=== PATIENT | female | born 1985 | race Hispanic/Latino ===

== ENCOUNTER 2021-09-20 07:34 | Emergency (ER) | payer OTHER ==
--- NOTE | 2021-09-20 08:51 | EDPHYS ---
Physician Documentation [facility] Name: Petty Enrique Age: 36 yrs Sex: Female : 1985 Arrival Date: 09/20/2021 Time: 07:35 Bed Waiting Private MD: ED Physician Kamran Craig HPI: 09/20 08:10 This 36 yrs old Female presents to ER via Ambulatory with complaints of Finger cp Injury. 08:10 The patient or guardian reports injury. The complaints affect the left middle and cp fourth fingers. Context: resulted from hand became entangled in leash of dog. Onset: The symptoms/episode began/occurred yesterday. Associated signs and symptoms: Pertinent positives: swelling, Pertinent negatives: cyanosis distally, decreased sensation distally. 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 - Social history:: Smoking status: Patient denies any tobacco usage or history of. ROS: 08:13 MS/extremity: Positive for pain, swelling, tenderness, of the left fourth and third cp fingers. 08:13 Neuro: Negative for numbness. 08:13 All other systems are negative. Exam: 08:14 Constitutional: The patient appears in no acute distress, alert, awake, non-toxic, well cp developed, well nourished. 08:14 Musculoskeletal/extremity: Extremities: grossly normal except: noted in the left third and fourth fingers: decreased ROM, pain, swelling, tenderness, ROM: limited passive range of motion due to pain, in the left third and fourth fingers, Perfusion: the extremity is normally perfused throughout, the left hand Sensation intact. Vital Signs: 07:41 BP 112 / 78; Pulse 88; Resp 14; Temp 98.2; Pulse Ox 100% ; Weight 48.99 kg; Height 5 vg1 ft. 2 in. (157.48 cm); Pain 2/10; 07:41 Body Mass Index 19.75 (48.99 kg, 157.48 cm) vg1 MDM: 08:20 Differential diagnosis: dislocation, closed fracture. cp 08:48 Data reviewed: vital signs, nurses notes. Test interpretation: by ED physician or cp midlevel provider: xrays of left hand negative for fracture. 08:50 Patient medically screened. cp 08:50 Counseling: I had a detailed discussion with the patient and/or guardian regarding: the cp historical points, exam findings, and any diagnostic results supporting the discharge/admit diagnosis, radiology results, to return to the emergency department if symptoms worsen or persist or if there are any questions or concerns that arise at home. 09/20 07:45 Order name: XRAY Hand LEFT 3 View; Complete Time: 09:07 jl7 09/20 09:07 Interpretation: Report reviewed. cp 09/20 08:47 Order name: Finger Splint; Complete Time: 09:07 cp Administered Medications: No medications were administered Disposition: 09:00 Chart complete. cp 14:22 Co-signature as Attending Physician, Kamran Craig MD I agree with the assessment and kdr plan of care. Disposition Summary: 09/20/21 08:50 Discharge Ordered Location: Home cp Problem: new cp Symptoms: have improved cp Condition: Stable cp Diagnosis - Pain in left finger(s) - Left Third and Fourth cp Followup: cp - With: Private Physician - When: 2 - 3 days - Reason: Worsening of condition Discharge Instructions: - Discharge Summary Sheet cp - Finger Sprain, Adult cp Forms: - Medication Reconciliation Form cp - Thank You Letter cp - Antibiotic Education cp - Prescription Opioid Use cp Prescriptions: - Ibuprofen 800 mg Oral Tablet - take 0.5 tablet by ORAL route every 8 hours As needed take with food; 30 cp tablet; Refills: 0, Product Selection Permitted Signatures: Dispatcher [employer] Kamran Mar MD MD kdr Sammy Arroyo PA PA cp Garcia, Victoria, RN RN vg1 Corrections: (The following items were deleted from the chart) 09/21 06:44 09/20 08:50 Differential diagnosis: dislocation, closed fracture, cp cp
--- NOTE | 2021-09-20 08:51 | ER ---
Nurse's Notes [facility] Name: Petty Enrique Age: 36 yrs Sex: Female : 1985 Arrival Date: 09/20/2021 Time: 07:35 Bed Waiting Private MD: Diagnosis: Pain in left finger(s)-Left Third and Fourth Presentation: 09/20 07:41 Chief complaint: Patient states: Was trying to bead picker dog and Left ring finger and vg1 Left middle finger were under dogs collar and dog twisted around. Pt fingers appear to be swollen. Incident occurred yesterday afternoon. Coronavirus screen: Vaccine status: Patient reports receiving the 2nd dose of the covid vaccine. Client denies travel out of the [place] in the last 14 days. Ebola Screen: Patient negative for fever greater than or equal to 101.5 degrees Fahrenheit, and additional compatible Ebola Virus Disease symptoms. Initial Sepsis Screen: Does the patient meet any 2 criteria? No. Patient's initial sepsis screen is negative. Does the patient have a suspected source of infection? No. Patient's initial sepsis screen is negative. Risk Assessment: Do you want to hurt yourself or someone else? Patient reports no desire to harm self or others. Onset of symptoms was September 19, 2021. 07:41 Method Of Arrival: Ambulatory vg1 07:41 Acuity: MARCELO 4 vg1 Triage Assessment: 07:43 General: Appears in no apparent distress. comfortable, Behavior is calm, cooperative. vg1 Pain: Complains of pain in dorsal aspect of middle phalanx of left middle finger, dorsal aspect of proximal phalanx of left middle finger, dorsal aspect of middle phalanx of left ring finger and dorsal aspect of proximal phalanx of left ring finger Pain currently is 2 out of 10 on a pain scale. Musculoskeletal: Circulation, motion, and sensation intact. 09:06 Injury Description: minor swelling. 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 - Social history:: Smoking status: Patient denies any tobacco usage or history of. Screenin:04 Abuse screen: Denies threats or abuse. Denies injuries from another. Nutritional jl7 screening: No deficits noted. Tuberculosis screening: No symptoms or risk factors identified. Fall Risk None identified. Assessment: 09:04 Reassessment: Left middle and ring finger taped together. jl7 Vital Signs: 07:41 BP 112 / 78; Pulse 88; Resp 14; Temp 98.2; Pulse Ox 100% ; Weight 48.99 kg; Height 5 vg1 ft. 2 in. (157.48 cm); Pain 2/10; 07:41 Body Mass Index 19.75 (48.99 kg, 157.48 cm) vg1 ED Course: 07:35 Patient arrived in ED. am2 07:43 Triage completed. vg1 07:43 Arm band placed on. vg1 08:04 X-ray completed. Portable x-ray completed in exam room. 1 08:08 XRAY Hand LEFT 3 View In Process Unspecified. EDMS 08:10 Sammy Arroyo PA is PHCP. cp 08:10 Kamran Craig MD is Attending Physician. cp 09:04 Patient has correct armband on for positive identification. jl7 09:04 No provider procedures requiring assistance completed. Patient did not have IV access jl7 during this emergency room visit. Administered Medications: No medications were administered Outcome: 08:50 Discharge ordered by MD. cp 09:04 Discharged to home ambulatory. jl7 09:04 Condition: stable 09:04 Discharge instructions given to patient, Instructed on discharge instructions, follow up and referral plans. medication usage, Demonstrated understanding of instructions, follow-up care, medications, Prescriptions given X 1. 09:07 Patient left the ED. jl7 Signatures: Dispatcher [employer] EDMS Sammy Arroyo PA PA cp Leal, Jahala RN RN jl7 Nichelle Gusman am2 Marizol Hernández md1 Jennyfer Damon RN RN vg1
--- NOTE | 2021-09-20 08:59 | RAD REPORT ---
EXAM DESCRIPTION: RAD - Hand Left 3 View - 09/20/2021 8:08 am CLINICAL HISTORY: PAIN, trauma to the hand, pain primarily second and third digits COMPARISON: None. FINDINGS: No fracture, dislocation or periosteal reaction noted. No foreign body or other soft tissu e abnormality. IMPRESSION: Negative left hand examination.
[2021-09-20 09:13] VITALS: BP 112/78; TEMP 98.2; O2SAT 100
== END 2021-09-20 09:07 | disposition home or self-care (01) ==
LOC: ER 07:34
DX: M79.645 Pain in left finger(s) (principal); Z88.2 Allergy status to sulfonamides; X50.1XXA Overexertion from prolonged static or awkward postures, initial encounter; Y93.89 Activity, other specified; Y92.9 Unspecified place or not applicable
CPT/HCPCS: 99283

== ENCOUNTER 2023-02-03 18:38 | Emergency (ER) | payer OTHER ==
[2023-02-03] MEDS ORDERED: KETOROLAC 30 MG/ML INJ ONE (20:06)
[2023-02-03] MEDS ORDERED: NA CHLORIDE 0.9% 1,000 ML ONE (20:06)
[2023-02-03] MEDS ORDERED: DIPHENHYDRAMINE 50 MG/ML VIAL ONE (20:06)
[2023-02-03] MEDS ORDERED: METOCLOPRAMIDE 10 MG/2mL INJ ONE (20:06)
[2023-02-03 20:17] LABS: Specific Gravity 1.006 (1.005-1.030)
[2023-02-03] MEDS ORDERED: LORAZEPAM 1 MG TABLET ONE (20:35)
--- NOTE | 2023-02-03 21:12 | EDPHYS ---
Physician Documentation [facility] Name: Petty Enrique Age: 37 yrs Sex: Female : 1985 Arrival Date: 02/03/2023 Time: 18:38 Bed 11 Private MD: ED Physician Evert Pyle HPI: 02/03 19:24 This 37 yrs old Female presents to ER via Ambulatory with complaints of sp4 Headache. 20:55 87-year-old female with history of chronic migraines presents with moderate to severe sp4 worsening of migraine headache starting 9 days ago associated with nausea. Patient took her Imitrex at home and her Zofran without relief of the headache. . Historical: - Allergies: 18:47 Sulfa (Sulfonamide Antibiotics); hb - Home Meds: 18:47 Imitrex Oral [Active]; DHA Algal-900 Oral [Active]; Vitamin Oral [Active]; hb Zofran Oral [Active]; - PMHx: 18:47 Migraine; SVT; hb - PSHx: 18:47 section; hb - Immunization history:: Adult Immunizations up to date. - Social history:: Smoking status: Patient denies any tobacco usage or history of. - Family history:: not pertinent. ROS: 20:55 Constitutional: Negative for fever, chills, and weight loss, Eyes: Negative for injury, sp4 pain, redness, and discharge, ENT: Negative for injury, pain, and discharge, Neck: Negative for injury, pain, and swelling, Cardiovascular: Negative for chest pain, palpitations, and edema, Respiratory: Negative for shortness of breath, cough, wheezing, and pleuritic chest pain, Abdomen/GI: Negative for abdominal pain, vomiting, diarrhea, and constipation, positive for nausea Back: Negative for injury and pain, : Negative for injury, bleeding, discharge, and swelling, MS/Extremity: Negative for injury and deformity, Skin: Negative for injury, rash, and discoloration, Neuro: Negative for weakness, numbness, tingling, and seizure, positive for nausea and headache Psych: Negative for depression, anxiety, Allergy/Immunology: Negative for hives, rash, and allergies Endocrine: Negative for neck swelling, polydipsia, polyuria, polyphagia, and weight changes Hematologic/Lymphatic: Negative for swollen nodes, abnormal bleeding, and unusual bruising Exam: 20:55 Constitutional: This is a well developed, well nourished patient who is awake, alert, sp4 and in no acute distress. Head/Face: Normocephalic, atraumatic. Eyes: Pupils equal round and reactive to light, extra-ocular motions intact. Lids and lashes normal. Conjunctiva and sclera are not injected. Cornea within normal limits. Periorbital areas with no swelling, redness, or edema. ENT: Nares patent. No nasal discharge, no septal abnormalities noted. Tympanic membranes are normal and external auditory canals are clear. Oropharynx with no redness, swelling, or masses, exudates, or evidence of obstruction, uvula midline. Mucous membranes moist. Neck: Trachea midline, no thyromegaly or masses palpated, and no cervical lymphadenopathy. Supple, full range of motion without nuchal rigidity, or vertebral point tenderness. No Meningismus. Chest/axilla: Normal chest wall appearance and motion. Nontender with no deformity. No lesions are appreciated. Cardiovascular: Regular rate and rhythm with a normal S1 and S2. No gallops, murmurs, or rubs. Normal PMI, no JVD. No pulse deficits. Respiratory: Lungs have equal breath sounds bilaterally, clear to auscultation and percussion. No rales, rhonchi or wheezes noted. No increased work of breathing, no retractions or nasal flaring. Abdomen/GI: Soft, non-tender, with normal bowel sounds. No distension or tympany. No guarding or rebound. No evidence of tenderness throughout. Back: No spinal tenderness. No costovertebral tenderness. Skin: Warm, dry with normal turgor. Normal color with no rashes, no lesions, and no evidence of cellulitis. MS/ Extremity: Pulses equal, no cyanosis. Neurovascular intact. Full, normal range of motion. Neuro: Awake and alert, GCS 15, oriented to person, place, time, and situation. Cranial nerves II-XII grossly intact. Motor strength 5/5 in all extremities. Sensory grossly intact. Psych: Awake, alert, with orientation to person, place and time. Behavior, mood, and affect are within normal limits Vital Signs: 18:46 BP 128 / 73; Pulse 91; Resp 18; Temp 98; Pulse Ox 100% on R/A; Weight 49.9 kg; Height 5 hb ft. 3 in. ; Pain 5/10; 22:27 BP 114 / 77; Pulse 70; Resp 16; Temp 98(TE); Pulse Ox 99% on R/A; cg 18:46 Body Mass Index 19.49 (49.90 kg, 160.02 cm) hb 18:46 Pain Scale: Adult hb Rayne Coma Score: 21:10 Eye Response: spontaneous(4). Motor Response: obeys commands(6). Verbal Response: sp4 oriented(5). Total: 15. MDM: 19:29 Patient medically screened. sp4 21:10 Differential diagnosis: cluster headache, hypertensive headache, migraine, otitis, sp4 sinusitis, vasomotor headache. Data reviewed: vital signs, nurses notes, lab test result(s), UPT: negative. ED course: Acute headache was made better by IV medications in the ER, patient is stable for discharge home with as needed Fioricet. Patient was advised to see her PMD or see neurologist for better headache control. Will provide referral to the neurologist. . 02/03 19:29 Order name: Test, Urine; Complete Time: 20:58 sp4 02/03 19:29 Order name: Saline Lock; Complete Time: 20:07 sp4 Administered Medications: 19:51 Drug: NS 0.9% IV 500 ml Route: IV; Rate: bolus; Site: right antecubital; kl 22:26 Follow up: IV Status: Completed infusion; IV Intake: 500ml cg 19:51 Drug: diphenhydrAMINE IVP 25 mg Route: IVP; Site: right antecubital; kl 22:26 Follow up: Response: No adverse reaction; Marked relief of symptoms cg 19:55 Drug: metoCLOPramide IVP 10 mg Route: IVP; Site: right antecubital; kl 22:26 Follow up: Response: No adverse reaction; Marked relief of symptoms cg 20:07 Drug: Ketorolac IVP 30 mg Route: IVP; Site: right antecubital; kl 22:26 Follow up: Response: No adverse reaction cg 20:33 Drug: LORazepam PO 1 mg Route: PO; kl 22:26 Follow up: Response: No adverse reaction; Marked relief of symptoms cg 21:23 Drug: morphine IVP or IV 2 mg Route: IVP; Infused Over: 4 mins; Site: right antecubital; 22:26 Follow up: Response: No adverse reaction; Marked relief of symptoms cg Disposition Summary: 02/03/23 21:12 Discharge Ordered Location: Home sp4 Problem: new sp4 Symptoms: have improved sp4 Condition: Stable sp4 Diagnosis - Migraine without aura, intractable sp4 Followup: sp4 - With: Jens Raya MD - When: 7 - 10 days - Reason: Recheck today's complaints Discharge Instructions: - Discharge Summary Sheet sp4 - Chronic Migraine Headache, [id number] sp4 Forms: - Thank You Letter sp4 Prescriptions: - Fioricet 50-300-40 mg Oral capsule - take 2 capsule by ORAL route every 6 hours do not exceed 6 caps per day; 30 sp4 capsule; Refills: 0, Product Selection Permitted Signatures: Dispatcher [employer] Yodit Gaxiola RN RN Alexus Black RN RN hb Potepalov, Sergey, MD MD sp4 Jossie Damon RN Corrections: (The following items were deleted from the chart) 20:56 20:55 87-year-old female with history of chronic migraines presents with moderate to sp4 severe worsening of migraine headache starting 4 days ago. sp4
--- NOTE | 2023-02-03 21:12 | ER ---
Nurse's Notes [facility] Name: Petty Enrique Age: 37 yrs Sex: Female : 1985 Arrival Date: 02/03/2023 Time: 18:38 Bed 11 Private MD: Diagnosis: Migraine without aura, intractable Presentation: 02/03 18:46 Chief complaint: Migraine and nausea x 9 days, unrelieved by Zofran and Imitrex. Coronavirus screen: At this time, the client does not indicate any symptoms associated with coronavirus-19. Ebola Screen: No symptoms or risks identified at this time. Initial Sepsis Screen: Does the patient meet any 2 criteria? No. Patient's initial sepsis screen is negative. Does the patient have a suspected source of infection? No. Patient's initial sepsis screen is negative. Risk Assessment: Do you want to hurt yourself or someone else? Patient reports no desire to harm self or others. Onset of symptoms was January 25, 2023. 18:46 Method Of Arrival: Ambulatory 18:46 Acuity: MARCELO 3 Triage Assessment: 18:47 Headache History: The patient has had previous headaches and this one is similar to previous episodes. General: Appears in no apparent distress. Behavior is calm, cooperative. Pain: Pain currently is 5 out of 10 on a pain scale. Neuro: Level of Consciousness is awake, alert, obeys commands, Oriented to person, place, time, situation. Cardiovascular: Patient's skin is warm and dry. Respiratory: Respiratory effort is even, unlabored, Respiratory pattern is regular, symmetrical. 22:28 Pain: Also complains of. cg Historical: - Allergies: 18:47 Sulfa (Sulfonamide Antibiotics); hb - Home Meds: 18:47 Imitrex Oral [Active]; DHA Algal-900 Oral [Active]; Vitamin Oral [Active]; hb Zofran Oral [Active]; - PMHx: 18:47 Migraine; SVT; hb - PSHx: 18:47 section; hb - Immunization history:: Adult Immunizations up to date. - Social history:: Smoking status: Patient denies any tobacco usage or history of. - Family history:: not pertinent. Screenin:23 [facility] ED Fall Risk Assessment (Adult) History of falling in the last 3 months, kl including since admission No falls in past 3 months (0 pts) Confusion or Disorientation No (0 pts) Intoxicated or Sedated No (0 pts) Impaired Gait No (0 pts) Mobility Assist Device Used No (0 pt) Altered Elimination No (0 pt) Score/Fall Risk Level 0 - 2 = Low Risk Oriented to surroundings, Maintained a safe environment. Abuse screen: Denies threats or abuse. Nutritional screening: No deficits noted. Tuberculosis screening: No symptoms or risk factors identified. Assessment: 19:22 General: Appears uncomfortable, well groomed, well developed, Behavior is calm, kl cooperative. Pain: Complains of pain in left frontal area and left temporal area Pain currently is 6 out of 10 on a pain scale. Quality of pain is described as aching, pressure. Neuro: No deficits noted. Level of Consciousness is awake, alert, obeys commands, Oriented to person, place, time, situation, Vacuum Frame Operator are equal bilaterally Moves all extremities. Full function Gait is steady, Speech is normal, Facial symmetry appears normal. Cardiovascular: No deficits noted. Respiratory: No deficits noted. GI: No deficits noted. No signs and/or symptoms were reported involving the gastrointestinal system. : No deficits noted. No signs and/or symptoms were reported regarding the genitourinary system. EENT: No deficits noted. No signs and/or symptoms were reported regarding the EENT system. 20:45 Reassessment: No changes from previously documented assessment. Patient is alert, cg oriented x 3, equal unlabored respirations, skin warm/dry/pink. Patient states feeling better. Patient states symptoms have improved. Vital Signs: 18:46 BP 128 / 73; Pulse 91; Resp 18; Temp 98; Pulse Ox 100% on R/A; Weight 49.9 kg; Height 5 hb ft. 3 in. ; Pain 5/10; 22:27 BP 114 / 77; Pulse 70; Resp 16; Temp 98(TE); Pulse Ox 99% on R/A; cg 18:46 Body Mass Index 19.49 (49.90 kg, 160.02 cm) hb 18:46 Pain Scale: Adult hb Rayne Coma Score: 21:10 Eye Response: spontaneous(4). Motor Response: obeys commands(6). Verbal Response: sp4 oriented(5). Total: 15. ED Course: 18:40 Patient arrived in ED. am2 18:47 Triage completed. hb 18:47 Arm band placed on. hb 19:23 Patient has correct armband on for positive identification. Bed in low position. Call kl light in reach. 19:24 Evert Pyle MD is Attending Physician. sp4 19:50 No provider procedures requiring assistance completed. Inserted saline lock: 22 gauge kl in right antecubital area, using aseptic technique. 20:08 Test, Urine Sent. kl 21:11 Jens Raya MD is Referral Physician. sp4 22:27 IV discontinued, intact, bleeding controlled, No redness/swelling at site. Pressure cg dressing applied. Administered Medications: 19:51 Drug: NS 0.9% IV 500 ml Route: IV; Rate: bolus; Site: right antecubital; kl 22:26 Follow up: IV Status: Completed infusion; IV Intake: 500ml cg 19:51 Drug: diphenhydrAMINE IVP 25 mg Route: IVP; Site: right antecubital; kl 22:26 Follow up: Response: No adverse reaction; Marked relief of symptoms cg 19:55 Drug: metoCLOPramide IVP 10 mg Route: IVP; Site: right antecubital; kl 22:26 Follow up: Response: No adverse reaction; Marked relief of symptoms cg 20:07 Drug: Ketorolac IVP 30 mg Route: IVP; Site: right antecubital; kl 22:26 Follow up: Response: No adverse reaction cg 20:33 Drug: LORazepam PO 1 mg Route: PO; kl 22:26 Follow up: Response: No adverse reaction; Marked relief of symptoms cg 21:23 Drug: morphine IVP or IV 2 mg Route: IVP; Infused Over: 4 mins; Site: right antecubital;kl 22:26 Follow up: Response: No adverse reaction; Marked relief of symptoms cg Medication: 19:23 VIS not applicable for this client. kl Intake: 22:26 IV: 500ml; Total: 500ml. cg Outcome: 21:12 Discharge ordered by . sp4 22:27 Discharged to home ambulatory, with family. cg 22:27 Condition: improved 22:27 Discharge instructions given to patient, Instructed on discharge instructions, follow up and referral plans. Demonstrated understanding of instructions, follow-up care, Prescriptions given X 22:28 Patient left the ED. cg Signatures: Yodit Kaur RN RN Jossie Gamble RN RN Alexus Albarado RN RN Nichelle Gusman am2 Evert Pyle MD MD sp4
[2023-02-03] MEDS ORDERED: MORPHINE 2 MG/ML SYR ONE (21:21)
[2023-02-03 22:47] VITALS: TEMP 98
[2023-02-03 22:53] VITALS: BP 114/77; O2SAT 99
== END 2023-02-03 22:28 | disposition home or self-care (01) ==
LOC: ER 18:38
DX: G43.019 Migraine without aura, intractable, without status migrainosus (principal); Z88.2 Allergy status to sulfonamides
CPT/HCPCS: 96361; 81025; 96375; 96374; 99284; J2765; J1200; J2270; J7030